=== PATIENT | male | born 2000 | race Hispanic/Latino ===

== ENCOUNTER → 2020-09-30 | Day surgery (SDC) | payer OTHER ==
[~2020-09-30] MED LIST: CARAFATE1 GM/10 ML PO; METFORMIN HCL500 MG PO; ONDANSETRON ODT4 MG PO; PEPCID20 MG PO
[2020-09-30 08:25] VITALS: BP 121/76
[2020-09-30 11:44] LABS: BILIRUBIN,DIRECT 0.8 mg/dL (0.0-0.5)
== END | disposition home or self-care (01) ==
LOC: OR 06:29
PROVIDERS: ATTEND Internal Medicine Gastroenterology
DX: K29.70 Gastritis, unspecified, without bleeding (principal); K31.89 Other diseases of stomach and duodenum; Z01.810 Encounter for preprocedural cardiovascular examination; Z01.812 Encounter for preprocedural laboratory examination; Z20.822 Contact with and (suspected) exposure to COVID-19; Z79.84 Long term (current) use of oral hypoglycemic drugs; Z68.30 Body mass index [BMI] 30.0-30.9, adult
CPT/HCPCS: 36415; 43239; 80076; 82948; 93005; U0002

== ENCOUNTER 2020-10-11 03:06 | Emergency (ER) | payer SELFPAY ==
[~2020-10-11] VITALS: Ht 160 cm; Wt 77.6 kg
[~2020-10-11 03:06] MED LIST changes: -CARAFATE1 GM/10 ML PO; -ONDANSETRON ODT4 MG PO; -PEPCID20 MG PO
[2020-10-11] MEDS ORDERED: SODIUM CHLORIDE 0.9% 1000ML 1,000 ML IV STA (03:49)
[2020-10-11] MEDS ORDERED: ONDANSETRON HCL INJ 2MG/ML 2ML 2 MG/ML VIAL IV STA (03:49)
[2020-10-11] MEDS ORDERED: MORPHINE SULFATE INJ 4 MG/ML INJ 1ML IV ONE (04:00)
[2020-10-11] MEDS ORDERED: MORPHINE SULFATE INJ 4 MG/ML INJ 1ML ONE (04:06)
[2020-10-11] MEDS ORDERED: SODIUM CHLORIDE 0.9% 1000ML 1,000 ML ONE (04:06)
[2020-10-11] MEDS ORDERED: ONDANSETRON HCL INJ 2MG/ML 2ML 2 MG/ML VIAL ONE (04:06)
[2020-10-11] MEDS ORDERED: SODIUM CHLORIDE 0.9% 50ML 50 ML ONE (04:30)
[2020-10-11] MEDS ORDERED: IOPAMIDOL 370 MG/ML 200 ML INFUS..BTL INJ ONE (04:31)
[2020-10-11] MEDS ORDERED: PEPCID20 MG PO (05:25)
[2020-10-11] MEDS ORDERED: ONDANSETRON ODT4 MG PO (05:25)
[2020-10-11] MEDS ORDERED: CARAFATE1 GM/10 ML PO (12:01)
== END 2020-10-11 05:45 | disposition home or self-care (01) ==
LOC: FSED 03:55
DX: R10.13 Epigastric pain (principal); E11.43 Type 2 diabetes mellitus with diabetic autonomic (poly)neuropathy; K31.84 Gastroparesis; R11.2 Nausea with vomiting, unspecified
CPT/HCPCS: 74177; 80053; 81003; 85025; 96374; 96376; 99283; J2270; J2405; J7030; Q9967

== ENCOUNTER 2020-10-11 11:30 | Inpatient (IN) | payer SELFPAY ==
[~2020-10-11] VITALS: Ht 160 cm; Wt 75.3 kg
[~2020-10-11 11:30] MED LIST changes: +ONDANSETRON ODT4 MG PO; +PEPCID20 MG PO
[2020-10-11] MEDS ORDERED: SODIUM CHLORIDE 0.9% 1000ML 1,000 ML IV STA ×2 (11:38→12:33)
[2020-10-11] MEDS ORDERED: ONDANSETRON HCL INJ 2MG/ML 2ML 2 MG/ML VIAL ONE (11:58)
[2020-10-11] MEDS ORDERED: SODIUM CHLORIDE 0.9% 1000ML 1,000 ML ONE ×2 (11:58→12:48)
[2020-10-11] MEDS ORDERED: FAMOTIDINE 20 MG/2 ML VIAL IV ONE ×2 (11:58→12:00)
[2020-10-11] MEDS ORDERED: ONDANSETRON HCL INJ 2MG/ML 2ML 2 MG/ML VIAL IV ONE (12:00)
[2020-10-11] MEDS ORDERED: CARAFATE1 GM/10 ML PO (12:01)
[2020-10-11] MEDS: MORPHINE SULFATE INJ 4 MG/ML INJ 1ML IV PRN ×2 (13:40→15:55)
[2020-10-11] MEDS ORDERED: MORPHINE SULFATE INJ 4 MG/ML INJ 1ML ONE ×2 (13:46→16:01)
[2020-10-11 14:52] LABS: BASOPHILS % 0.2 % (0.0-1.0); EOSINOPHILS % 0.2 % (0.0-6.0); HEMOGLOBIN 15.8 g/dL (14.0-18.0); LYMPHOCYTES # (AUTO) 1.1 (1.0-3.2); LYMPHOCYTES % 21.7 % (18.0-39.1); MEAN CORPUSCULAR HEMOGLOBIN 30.1 pg (28-32); MEAN CORPUSCULAR HGB CONC 36.7 g/dL (31-35); MEAN CORPUSCULAR VOLUME 81.9 fL (81-99); MONOCYTES # (AUTO) 0.6 (0.2-0.8); MONOCYTES % 11.8 % (4.4-11.3); NEUTROPHILS # (AUTO) 3.4 (2.1-6.9); NEUTROPHILS % 65.5 % (38.7-80.0); PLATELET COUNT 199 x10e3/uL (140-360); RED BLOOD COUNT 5.25 x10e6/uL (4.3-5.7); RED CELL DISTRIBUTION WIDTH 11.8 % (11.7-14.4)
[2020-10-11 15:07] LABS: ALBUMIN 4.4 g/dL (3.5-5.0); ALBUMIN/GLOBULIN RATIO 1.3 (0.8-2.0); ANION GAP 24.3 mmol/L (8-16); CALCIUM 9.4 mg/dL (8.4-10.2); CREATININE, SERUM 0.72 mg/dL (0.72-1.25); POTASSIUM 3.3 mmol/L (3.5-5.1)
[2020-10-11] MEDS ORDERED: METOCLOPRAMIDE HCL 10 MG/2ML VIAL IV PRN (15:45)
[2020-10-11] MEDS ORDERED: DEXTROSE 50% SYRINGE 50 ML IV PRN (15:45)
[2020-10-11 17:15] VITALS: BP 144/87
[2020-10-11] MEDS: SODIUM CHLORIDE 0.9% 1000ML 1,000 ML IV SCH ×2 (17:39→23:53)
[2020-10-11] MEDS: METOCLOPRAMIDE HCL 10 MG/2ML VIAL IV SCH ×2 (17:40→23:53)
[2020-10-11] MEDS: INSULIN REGULAR, HUMAN 100 UNIT/1 ML SQ SCH ×2 (17:58→20:10)
[2020-10-11 18:15] VITALS: BP 144/87
[2020-10-11 18:24] VITALS: BP 144/87
[2020-10-11 19:47] VITALS: BP 122/67
[2020-10-11] MEDS: MORPHINE SULFATE INJ 2 MG/ML SYR IV PRN (20:55)
[2020-10-11 21:00] VITALS: BP 122/67
[2020-10-11] MEDS: ONDANSETRON HCL INJ 2MG/ML 2ML 2 MG/ML VIAL IV PRN (23:53)
[2020-10-12] VITALS (15 sets, daily range): BP systolic 115–142; BP diastolic 70–94
[2020-10-12] MEDS ORDERED: CHLORDIAZEPOXIDE/CLIDINIUM 1 CAP PO STA (00:10)
[2020-10-12] MEDS: MORPHINE SULFATE INJ 2 MG/ML SYR IV PRN ×5 (00:55→21:52)
[2020-10-12] MEDS: METOCLOPRAMIDE HCL 10 MG/2ML VIAL IV SCH ×4 (06:18→23:58)
[2020-10-12 08:00] LABS: BASOPHILS % 0.5 % (0.0-1.0); EOSINOPHILS # (AUTO) 0.1 (0.0-0.4); EOSINOPHILS % 1.2 % (0.0-6.0); HEMATOCRIT 38.9 % (38.2-49.6); HEMOGLOBIN 14.1 g/dL (14.0-18.0); LYMPHOCYTES % 23.8 % (18.0-39.1); MEAN CORPUSCULAR HEMOGLOBIN 30.2 pg (28-32); MEAN CORPUSCULAR HGB CONC 36.2 g/dL (31-35); MEAN CORPUSCULAR VOLUME 83.3 fL (81-99); MONOCYTES # (AUTO) 0.5 (0.2-0.8); MONOCYTES % 12.9 % (4.4-11.3); NEUTROPHILS # (AUTO) 2.5 (2.1-6.9); NEUTROPHILS % 60.9 % (38.7-80.0); PLATELET COUNT 154 x10e3/uL (140-360); RED BLOOD COUNT 4.67 x10e6/uL (4.3-5.7); RED CELL DISTRIBUTION WIDTH 11.8 % (11.7-14.4)
[2020-10-12] MEDS: SODIUM CHLORIDE 0.9% 1000ML 1,000 ML IV SCH ×3 (08:00→23:58)
[2020-10-12] MEDS: INSULIN REGULAR, HUMAN 100 UNIT/1 ML SQ SCH ×2 (08:02→11:28)
[2020-10-12 08:22] LABS: ALBUMIN 3.6 g/dL (3.5-5.0); ALBUMIN/GLOBULIN RATIO 1.2 (0.8-2.0); ANION GAP 13.5 mmol/L (8-16); CALCIUM 8.4 mg/dL (8.4-10.2); CREATININE, SERUM 0.63 mg/dL (0.72-1.25); POTASSIUM 3.5 mmol/L (3.5-5.1)
[2020-10-12] MEDS: CHLORDIAZEPOXIDE/CLIDINIUM 1 CAP PO SCH ×4 (08:35→20:58)
[2020-10-12] MEDS ORDERED: CASIRIVIMAB/IMDEVIMAB 10 ML in SODIUM CHLORIDE 0.9% 100 ML IV ONE (12:00)
[2020-10-12 14:42] LABS: FREE T4 (FREE THYROXINE) 1.12 ng/dL (0.8-1.8); THYROID STIMULATING HORMONE 0.624 uIU/mL (0.350-4.940)
[2020-10-12] MEDS: INSULIN LISPRO 100 UNIT/1 ML 3ML VIAL SQ SCH ×2 (16:30→20:53)
[2020-10-12] MEDS: INSULIN GLARGINE 100 UNITS/ML VIAL SQ SCH (21:17)
[2020-10-13] VITALS (8 sets, daily range): BP systolic 127–156; BP diastolic 78–94
[2020-10-13] MEDS ORDERED: IOPAMIDOL 370 MG/ML 200 ML INFUS..BTL INJ ONE (05:02)
[2020-10-13] MEDS ORDERED: SODIUM CHLORIDE 0.9% 50ML 50 ML ONE (05:02)
[2020-10-13] MEDS: METOCLOPRAMIDE HCL 10 MG/2ML VIAL IV SCH ×4 (05:46→23:50)
[2020-10-13] MEDS: MORPHINE SULFATE INJ 2 MG/ML SYR IV PRN ×2 (05:54→16:24)
[2020-10-13] MEDS: SODIUM CHLORIDE 0.9% 1000ML 1,000 ML IV SCH ×3 (08:30→23:50)
[2020-10-13] MEDS: CHLORDIAZEPOXIDE/CLIDINIUM 1 CAP PO SCH ×4 (08:30→20:10)
[2020-10-13] MEDS: INSULIN LISPRO 100 UNIT/1 ML 3ML VIAL SQ SCH ×4 (08:35→21:00)
[2020-10-13 09:10] LABS: AMYLASE 59 U/L (25-125); LIPASE 35 U/L (8-78)
[2020-10-13] MEDS: INSULIN GLARGINE 100 UNITS/ML VIAL SQ SCH (21:00)
[2020-10-14] VITALS (8 sets, daily range): BP systolic 119–145; BP diastolic 64–93
[2020-10-14] MEDS: METOCLOPRAMIDE HCL 10 MG/2ML VIAL IV SCH ×3 (05:55→16:04)
[2020-10-14] MEDS: INSULIN LISPRO 100 UNIT/1 ML 3ML VIAL SQ SCH ×4 (07:30→21:15)
[2020-10-14] MEDS: CHLORDIAZEPOXIDE/CLIDINIUM 1 CAP PO SCH ×4 (08:45→21:15)
[2020-10-14] MEDS: MORPHINE SULFATE INJ 2 MG/ML SYR IV PRN ×2 (08:45→13:00)
[2020-10-14] MEDS: SODIUM CHLORIDE 0.9% 1000ML 1,000 ML IV SCH ×3 (08:45→21:15)
[2020-10-14] MEDS: ONDANSETRON HCL INJ 2MG/ML 2ML 2 MG/ML VIAL IV PRN ×2 (08:45→13:00)
[2020-10-14] MEDS: INSULIN GLARGINE 100 UNITS/ML VIAL SQ SCH (21:15)
[2020-10-14] MEDS ORDERED: ACETAMINOPHEN 325 MG TAB PO PRN (21:30)
[2020-10-15] VITALS: BP 131/97
[2020-10-15] MEDS: METOCLOPRAMIDE HCL 10 MG/2ML VIAL IV SCH ×3 (00:30→11:39)
[2020-10-15 04:00] VITALS: BP 133/87
[2020-10-15 06:24] LABS: BASOPHILS % 0.3 % (0.0-1.0); EOSINOPHILS # (AUTO) 0.1 (0.0-0.4); HEMATOCRIT 36.3 % (38.2-49.6); HEMOGLOBIN 13.8 g/dL (14.0-18.0); LYMPHOCYTES # (AUTO) 1.4 (1.0-3.2); LYMPHOCYTES % 44.7 % (18.0-39.1); MEAN CORPUSCULAR HEMOGLOBIN 30.9 pg (28-32); MEAN CORPUSCULAR VOLUME 81.4 fL (81-99); MONOCYTES # (AUTO) 0.3 (0.2-0.8); MONOCYTES % 8.6 % (4.4-11.3); NEUTROPHILS # (AUTO) 1.3 (2.1-6.9); NEUTROPHILS % 41.7 % (38.7-80.0); PLATELET COUNT 188 x10e3/uL (140-360); RED BLOOD COUNT 4.46 x10e6/uL (4.3-5.7); RED CELL DISTRIBUTION WIDTH 11.7 % (11.7-14.4)
[2020-10-15 07:05] LABS: CALCIUM 8.8 mg/dL (8.4-10.2); CREATININE, SERUM 0.59 mg/dL (0.72-1.25)
[2020-10-15 07:30] VITALS: BP 121/84
[2020-10-15] MEDS: INSULIN LISPRO 100 UNIT/1 ML 3ML VIAL SQ SCH ×2 (07:30→11:39)
[2020-10-15] MEDS: SODIUM CHLORIDE 0.9% 1000ML 1,000 ML IV SCH (07:45)
[2020-10-15 07:56] VITALS: BP 121/84
[2020-10-15] MEDS: CHLORDIAZEPOXIDE/CLIDINIUM 1 CAP PO SCH ×2 (08:51→11:38)
[2020-10-15] MEDS ORDERED: POTASSIUM CHLORIDE 20 MEQ TAB CR PO ONE (11:30)
[2020-10-15 11:44] VITALS: BP 129/73
[2020-10-15] MEDS ORDERED: NOVOLIN 70100 UNIT/3 SQ (14:47)
[2020-10-15] MEDS ORDERED: HUMULIN 70100 UNIT/3 SQ (14:51)
[2020-10-15] MEDS ORDERED: PANTOPRAZOLE SOD 40 MG TABEC PO SCH (21:00)
[2020-10-15] MEDS ORDERED: INSULIN GLARGINE 100 UNITS/ML VIAL SQ SCH (21:00)
== END 2020-10-15 15:47 | disposition home or self-care (01) | DRG 73 ==
LOC: FSED 11:33 → ERHOLD 15:47 → MED/SURG3 17:05
PROVIDERS: ADMIT Internal Medicine; ATTEND Internal Medicine
PROC: 8E0ZXY6 Isolation (ICD-10-PCS; principal; 2020-10-11)
DX: E11.43 Type 2 diabetes mellitus with diabetic autonomic (poly)neuropathy (principal); U07.1 COVID-19; K31.84 Gastroparesis; Z79.899 Other long term (current) drug therapy; E11.65 Type 2 diabetes mellitus with hyperglycemia; R16.2 Hepatomegaly with splenomegaly, not elsewhere classified; E11.10 Type 2 diabetes mellitus with ketoacidosis without coma; E78.5 Hyperlipidemia, unspecified; K76.0 Fatty (change of) liver, not elsewhere classified
CPT/HCPCS: 36415; 71045; 74177; 80048; 80053; 80076; 81003; 82150; 82948; 83036; 83690; 84439; 84443; 85025; 96372; 96374; 96375; 99284; J1815; J1817; J2270; J2405; J2765; J7030; J7050; Q9967; U0002

== ENCOUNTER 2020-11-11 07:25 | Emergency (ER) | payer SELFPAY ==
[~2020-11-11] VITALS: Ht 160 cm; Wt 77.1 kg
[~2020-11-11 07:25] MED LIST changes: +CARAFATE1 GM/10 ML PO; +HUMULIN 70100 UNIT/3 SQ; +NOVOLIN 70100 UNIT/3 SQ
[2020-11-11] MEDS: SODIUM CHLORIDE 0.9% 1000ML 1,000 ML IV SCH ×2 (07:45→08:35)
[2020-11-11] MEDS ORDERED: ONDANSETRON HCL INJ 2MG/ML 2ML 2 MG/ML VIAL ONE (07:53)
[2020-11-11] MEDS ORDERED: SODIUM CHLORIDE 0.9% 1000ML 1,000 ML ONE ×2 (07:53→08:41)
[2020-11-11] MEDS ORDERED: FAMOTIDINE 20 MG/2 ML VIAL IV ONE (07:54)
[2020-11-11] MEDS ORDERED: FAMOTIDINE 20 MG/2 ML VIAL IV STA (08:03)
[2020-11-11] MEDS ORDERED: ONDANSETRON HCL INJ 2MG/ML 2ML 2 MG/ML VIAL IV STA (08:03)
[2020-11-11] MEDS ORDERED: KETOROLAC TROMETHAMINE 30 MG/ML VIAL IV STA (08:21)
[2020-11-11] MEDS ORDERED: METOCLOPRAMIDE HCL 10 MG/2ML VIAL IV ONE (08:30)
[2020-11-11] MEDS ORDERED: INSULIN REGULAR, HUMAN 100 UNIT/1 ML IV ONE (08:30)
[2020-11-11] MEDS ORDERED: KETOROLAC TROMETHAMINE 30 MG/ML VIAL ONE (08:41)
[2020-11-11] MEDS ORDERED: METOCLOPRAMIDE HCL 10 MG/2ML VIAL ONE (08:41)
[2020-11-11] MEDS ORDERED: PANTOPRAZOLE SO40 MG PO (11:22)
[2020-11-11] MEDS ORDERED: METOCLOPRAMIDE10 MG PO (11:24)
== END 2020-11-11 11:38 | disposition home or self-care (01) ==
LOC: FSED 07:58
DX: E11.43 Type 2 diabetes mellitus with diabetic autonomic (poly)neuropathy (principal); E11.65 Type 2 diabetes mellitus with hyperglycemia; K31.84 Gastroparesis; R10.10 Upper abdominal pain, unspecified; K29.70 Gastritis, unspecified, without bleeding; Z91.14 Patient's other noncompliance with medication regimen
CPT/HCPCS: 36415; 74022; 80048; 80076; 81003; 82948; 85025; 96374; 96375; 96376; 99283; J1817; J1885; J2405; J2765; J7030

== ENCOUNTER 2020-11-12 19:51 | Emergency (ER) | payer SELFPAY ==
[~2020-11-12] VITALS: Ht 160 cm; Wt 77.1 kg
[~2020-11-12 19:51] MED LIST changes: +METOCLOPRAMIDE10 MG PO; +PANTOPRAZOLE SO40 MG PO
[2020-11-12] MEDS ORDERED: KETOROLAC TROMETHAMINE 30 MG/ML VIAL IV STA (20:12)
[2020-11-12] MEDS ORDERED: HYDROCODONE/APAP 5MG-325MG TAB PO ONE (20:15)
[2020-11-12] MEDS ORDERED: METOCLOPRAMIDE HCL 10 MG/2ML VIAL IV ONE (20:15)
[2020-11-12] MEDS ORDERED: SODIUM CHLORIDE 0.9% 1000ML 1,000 ML IV SCH (20:15)
[2020-11-12] MEDS ORDERED: METOCLOPRAMIDE HCL 10 MG/2ML VIAL ONE (20:32)
[2020-11-12] MEDS ORDERED: HYDROCODONE/APAP 5MG-325MG TAB ONE (20:33)
[2020-11-12] MEDS ORDERED: SODIUM CHLORIDE 0.9% 1000ML 1,000 ML ONE (20:33)
[2020-11-12] MEDS ORDERED: KETOROLAC TROMETHAMINE 30 MG/ML VIAL ONE (20:33)
[2020-11-12] MEDS ORDERED: HALOPERIDOL LACTATE 5 MG/ML VIAL IM ONE (21:00)
[2020-11-12] MEDS ORDERED: HALOPERIDOL LACTATE 5 MG/ML VIAL ONE (21:30)
[2020-11-12 22:12] VITALS: BP 152/87
== END 2020-11-12 22:12 | disposition home or self-care (01) ==
LOC: FSED 20:07
DX: E11.43 Type 2 diabetes mellitus with diabetic autonomic (poly)neuropathy (principal); E11.65 Type 2 diabetes mellitus with hyperglycemia; R10.13 Epigastric pain; K21.9 Gastro-esophageal reflux disease without esophagitis; Z91.14 Patient's other noncompliance with medication regimen
CPT/HCPCS: 36415; 80053; 81003; 82948; 85025; 96372; 96374; 96376; 99283; J1630; J1885; J2765; J7030